=== PATIENT | male | born 1985 | race Caucasian/White ===

== ENCOUNTER 2017-03-16 04:27 | Emergency (ER) | payer OTHER ==
[~2017-03-16] VITALS: Ht 177.8 cm; Wt 79.4 kg
[~2017-03-16 04:27] MED LIST: DICYCLOMINE HCL10 MG PO; PROMETHAZINE12.5 M1 PO; TRAMADOL HCL50 MG PO
--- NOTE | 2017-03-16 16:49 | EKG ---
[facility] [address] [place], [place] [address] Signed Sinus rhythm with 1st degree AV block Rightward axis Borderline ECG No previous ECGs available Confirmed by JESSICA MORA MD ([id number]) on 03/16/2017 4:49:08 PM Electronically Signed By: JESSICA MORA MD 03/16/17 1649 PATIENT NAME: OLEG MEJIA Electrocardiogram DATE OF : 87 PHYSICIAN: JESSICA MROA MD REPORT #: [id number] REPORT IS CONFIDENTIAL AND NOT TO BE RELEASED WITHOUT AUTHORIZATION
== END 2017-03-16 06:55 | disposition home or self-care (01) ==
LOC: ED 04:27
DX: R56.9 Unspecified convulsions (principal); R55 Syncope and collapse; Z79.899 Other long term (current) drug therapy
CPT/HCPCS: 70450; 80053; 81001; 85025; 93005; 93010; 99284

== ENCOUNTER 2020-07-14 19:46 | Emergency (ER) | payer BC ==
[~2020-07-14] VITALS: Ht 177.8 cm; Wt 79.4 kg
[2020-07-14] MEDS ORDERED: NORCO 5-325 TA1 EACH PO (23:17)
== END 2020-07-14 23:33 | disposition home or self-care (01) ==
LOC: ED 19:46
DX: K90.0 Celiac disease (principal); Z88.6 Allergy status to analgesic agent
CPT/HCPCS: 74176; 80053; 81001; 83690; 85025; 96374; 96375; 96376; 99284-25; J1170; J1885; J2405; J7030